=== PATIENT | male | born 1945 | race Caucasian/White ===

== ENCOUNTER 2018-12-31 18:33 | Emergency (ER) | payer MEDICARE, SELFPAY ==
[2018-12-31 18:35] VITALS: BP 105/59; PULSE 64; RESP 18; TEMP 36.2; O2SAT 99; BMI 27.3
--- NOTE | 2018-12-31 20:00 | ED.RN ---
small amount bleeding through dressing. bleeidn slowed. dressing changed to monitor
--- NOTE | 2018-12-31 20:46 | ED.DCSUM_ITS ---
- ER Visit Summary Date of Service: 12/31/18 Chief Complaint: Bleeding History of Present Illness: The patient is a 73 M with bleeding at his left elbow. He had a skin tear to the area days ago. He takes Eliquis. Physical Examination: Patient has a small skin tear at his left lateral elbow less than 1 cm? an area. It is oozing bright red blood. Otherwise the skin is normal. He is neurovascular intact. Test Results: None indicated Emergency Department Course and Treatment: Gelfoam was applied. The bleeding stopped with some mild pressure. Dressing applied. Patient can follow-up with his family doctor. Treatment Plan: As above Disposition: Discharge Impression: Skin avulsion left elbow This note was generated with [employer] dictation software. It may contain incorrect words, spelling, and punctuation that were not noted in review of the chart prior to signing ED Disposition - Plan for ED Patient: Referrals: Fuentes Thurston MD [Primary Care Provider] -
--- NOTE | 2018-12-31 20:46 | ED.DEP ---
ED Disposition - Plan for ED Patient: Instructions: ED Avulsion Dermal Referrals: Fuentes Thurston MD [Primary Care Provider] -
[2018-12-31 21:03] VITALS: BP 148/90; PULSE 78; RESP 18; O2SAT 97
== END 2018-12-31 21:04 | disposition home or self-care (01) ==
PROVIDERS: Emergency Provider Emergency Medicine; Family Provider Family Medicine; PCP Family Medicine
DX: S51.002A Unspecified open wound of left elbow, initial encounter (principal); W22.8XXA Striking against or struck by other objects, initial encounter; Y93.9 Activity, unspecified; Y92.9 Unspecified place or not applicable; Y99.9 Unspecified external cause status; E11.9 Type 2 diabetes mellitus without complications; I10 Essential (primary) hypertension; N40.0 Benign prostatic hyperplasia without lower urinary tract symptoms; Z72.0 Tobacco use; Z79.01 Long term (current) use of anticoagulants; Z79.84 Long term (current) use of oral hypoglycemic drugs; Z79.899 Other long term (current) drug therapy
CPT/HCPCS: 99283